=== PATIENT | male | born 1975 | race Caucasian/White ===

== ENCOUNTER 2016-08-14 18:47 | Inpatient (IN) | payer BC ==
[~2016-08-14] VITALS: Ht 185.4 cm; Wt 113.4 kg
--- NOTE | 2016-08-14 19:00 | NUR ---
PT WALKED INTO ER C/O LEFT ELBOW PAIN FROM ABSCESS, PT IS ALERT, ORIENTED X 4, NO RESP DISTRESS NOTED OR REPORTED UPON ASSESSMENT... MD AT BEDSIDE...
[2016-08-14] MEDS ORDERED: VANCOMYCIN IV 1,000 MG in IV DEXTROSE 5% 250 ML IV ONE (19:15)
[2016-08-14] MEDS ORDERED: METRONIDAZOLE 500 MG TABLET PO ONE (19:15)
[2016-08-14] MEDS ORDERED: CLARITHROMYCIN 250 MG TABLET PO ONE (19:15)
--- NOTE | 2016-08-14 19:26 | NUR ---
PER [facility], PAGED DR. NEGRON FOR MD TO ... CALL TRANSFERRED TO [facility]
[2016-08-14] MEDS ORDERED: MAGNESIUM HYDROXIDE 30 ML LIQUID UDC PO PRN (19:30)
[2016-08-14] MEDS ORDERED: ACETAMINOPHEN 325 MG TABLET PO PRN (19:30)
[2016-08-14] MEDS ORDERED: Z GUARD REMEDY PASTE 57 GM TUBE TOP PRN (19:30)
[2016-08-14 19:50] LABS: BASOPHILS % (AUTO) 0.5 % (0.0-2.0); EOSINOPHILS # (AUTO) 0.1 K/uL (0.0-0.7); EOSINOPHILS % (AUTO) 1.7 % (0.0-7.0); HEMATOCRIT 50.9 % (40-50); HEMOGLOBIN 17.1 G/DL (14.0-18.0); LYMPHOCYTES # (AUTO) 2.4 K/UL (0.8-4.8); LYMPHOCYTES % (AUTO) 27.8 % (20.5-51.5); MEAN CORPUSCULAR HEMOGLOBIN 30.7 UUG (27.0-31.0); MEAN CORPUSCULAR HGB CONC 34 g/dL (32.0-37.0); MEAN CORPUSCULAR VOLUME 91.7 FL (82.0-92.0); MONOCYTES # (AUTO) 0.6 K/UL (0.1-1.30); MONOCYTES % (AUTO) 6.4 % (0.0-11.0); NEUTROPHILS # (AUTO) 5.7 K/UL (1.8-8.9); NEUTROPHILS % (AUTO) 63.6 % (38.5-71.5); PLATELET COUNT (AUTO) 199 K/UL (150-450); RED BLOOD CELL COUNT(AUTO) 5.56 MIL/UL (4.7-6.1); RED CELL DISTRIBUTION WIDTH 12.3 % (11.5-14.5); WHITE BLOOD COUNT (AUTO) 8.8 K/UL (4.0-11.2)
[2016-08-14] MEDS ORDERED: VANCOMYCIN IV 200 ML ONE (19:55)
[2016-08-14 20:00] LABS: CALCIUM 8.6 mg/dL (8.5-10.1); CREATININE 1.4 mg/dL (0.6-1.3); POTASSIUM 4.1 mmol/L (3.5-5.1)
[2016-08-14 20:05] LABS: ALBUMIN 3.9 g/dL (3.4-5.0); BILIRUBIN,DIRECT 0.1 mg/dL (0.0-0.2); BILIRUBIN,TOTAL 0.2 mg/dL (0.2-1.0); TOTAL PROTEIN, SERUM 7.1 g/dL (6.4-8.2)
[2016-08-14] MEDS ORDERED: IV LACTATED RINGERS SOLUTION 1,000 ML IV ONE (20:11)
[2016-08-14] MEDS ORDERED: METRONIDAZOLE 500 MG TABLET ONE (20:20)
[2016-08-14] MEDS ORDERED: CLARITHROMYCIN 250 MG TABLET ONE (20:20)
[2016-08-14] MEDS ORDERED: MISCELLANEOUS MED IV PRN (20:30)
[2016-08-14] MEDS ORDERED: PANTOPRAZOLE SODIUM 40 MG VIAL ONE (20:40)
[2016-08-14] MEDS ORDERED: MISCELLANEOUS MED XX PRN (20:45)
--- NOTE | 2016-08-14 20:45 | NUR ---
RECEIVED FROM ER VIA [facility]. USHERED TO ROOM AND PLACED COMFORTABLY ON BED. ACCOMPANIED BY SIGNIFICANT OTHER. ALERT,ORIENTED X 4, AMBULATORY. ABLE TO PROVIDE HISTORY. BODY ASSESSMENT DONE. ABLE TO MAKE NEEDS KNOWN. INSTRUCTED HOW TO USE CALL LIGHT WHEN IN NEED OF ASSISTANCE. NEEDS ATTENDED. CALL LIGHT WITHIN REACH
--- NOTE | 2016-08-14 20:54 | NUR ---
Pt. admitted to [facility] , under care of Dr. MESSINA, Belongs List completed, pt alert, and oriented x 4, no resp distress noted or reported upon transfer assessment... pt transferred via gurney...
[2016-08-14 21:11] VITALS: BP 147/85
[2016-08-14] MEDS ORDERED: CLAR500T3 PO (21:40)
[2016-08-14] MEDS ORDERED: METR500T PO (21:40)
[2016-08-15] VITALS (8 sets, daily range): BP systolic 113–125; BP diastolic 70–83
[2016-08-15] MEDS: HYDROCODONE/APAP 5-325MG TABLET PO PRN ×3 (00:26→21:49)
[2016-08-15] MEDS ORDERED: HYDROCODONE/APAP 5-325MG TABLET ONE (00:35)
--- NOTE | 2016-08-15 06:18 | NUR ---
SLEPT INTERMITTENTLY DURING THE SHIFT. NO ACUTE DISTRESS NOTED. REMAINS NPO POST MIDNIGHT. NEEDS ATTENDED. ALL DUE MEDS GIVEN ORDERED. KEPT COMFORTABLE AT ALL TIMES. CALL LIGHT WITHIN REACH
[2016-08-15 06:55] LABS: BASOPHILS % (AUTO) 0.5 % (0.0-2.0); EOSINOPHILS # (AUTO) 0.2 K/uL (0.0-0.7); EOSINOPHILS % (AUTO) 2.6 % (0.0-7.0); HEMATOCRIT 47.2 % (40-50); HEMOGLOBIN 15.8 G/DL (14.0-18.0); LYMPHOCYTES # (AUTO) 2.5 K/UL (0.8-4.8); LYMPHOCYTES % (AUTO) 39.5 % (20.5-51.5); MEAN CORPUSCULAR HEMOGLOBIN 30.7 UUG (27.0-31.0); MEAN CORPUSCULAR HGB CONC 33 g/dL (32.0-37.0); MEAN CORPUSCULAR VOLUME 91.9 FL (82.0-92.0); MONOCYTES # (AUTO) 0.6 K/UL (0.1-1.30); MONOCYTES % (AUTO) 9.7 % (0.0-11.0); NEUTROPHILS # (AUTO) 3.1 K/UL (1.8-8.9); NEUTROPHILS % (AUTO) 47.7 % (38.5-71.5); PLATELET COUNT (AUTO) 166 K/UL (150-450); RED BLOOD CELL COUNT(AUTO) 5.14 MIL/UL (4.7-6.1); RED CELL DISTRIBUTION WIDTH 12.4 % (11.5-14.5)
[2016-08-15 07:03] LABS: WHITE BLOOD COUNT (AUTO) 6.4 K/UL (4.0-11.2)
[2016-08-15 07:14] LABS: CALCIUM 8.3 mg/dL (8.5-10.1); MAGNESIUM 1.9 mg/dL (1.8-2.4); PHOSPHOROUS 3.5 mg/dL (2.5-4.9)
[2016-08-15] MEDS ORDERED: SEVOFLURANE 250 ML BOTTLE IH ONE (07:16)
[2016-08-15] MEDS ORDERED: PROPOFOL 200 MG/20 ML BOTTLE IV ONE (07:16)
[2016-08-15] MEDS ORDERED: LIDOCAINE HCL 1% 20 ML VIAL MC ONE (07:17)
[2016-08-15] MEDS ORDERED: ONDANSETRON 4 MG/2 ML VIAL IV ONE (07:17)
[2016-08-15] MEDS ORDERED: DEXAMETHASONE SOD PHOSPHATE 4 MG INJ IV ONE (07:17)
[2016-08-15] MEDS ORDERED: IV LACTATED RINGERS SOLUTION 1,000 ML BAG IV ONE (07:17)
[2016-08-15] MEDS ORDERED: EPHEDRINE SULFATE 50 MG/ML AMPUL MC ONE (07:18)
[2016-08-15 07:27] LABS: CREATININE 1.4 mg/dL (0.6-1.3)
[2016-08-15] MEDS ORDERED: POLYMYXIN B SULFATE 500,000 UNITS, BACITRACIN 50,000 UNITS, NORMAL SALINE 20 ML MC ONE ×3 (08:30)
[2016-08-15] MEDS ORDERED: BUPIVACAINE 0.25% 30 ML VIAL ONE (08:38)
[2016-08-15 08:51] LABS: *BILIRUBIN,URIN NEGATIVE (NEGATIVE); *BLOOD, URINE NEGATIVE (NEGATIVE); *CLARITY,URINE CLEAR (CLEAR); *COLOR,URINE YELLOW (YELLOW); *KETONES,URINE NEGATIVE (NEGATIVE); *PROTEIN,URINE NEGATIVE (NEGATIVE); *UROBILINOGEN,URINE 0.2 E.U./dl (NORMAL); LEUKOCYTE ESTERASE ,URINE NEGATIVE (NEGATIVE); NITRITE, URINE NEGATIVE (NEGATIVE); UGLUCOSE NEGATIVE (NEGATIVE)
[2016-08-15 08:59] LABS: BACTERIA,URINE FEW /HPF (NONE SEEN); RBC,URINE 0-3 /HPF (0-3); SQUAMOUS EPITHELIAL CELL,UR FEW /HPF (NONE SEEN); WBC,URINE 0-3 /HPF (0-3)
[2016-08-15] MEDS ORDERED: CLARITHROMYCIN PO SCH (09:00)
[2016-08-15] MEDS ORDERED: METRONIDAZOLE 500 MG TABLET PO SCH (09:00)
--- NOTE | 2016-08-15 09:18 | NUR ---
PATIENT PICKED UP BY BED TO OR AWAKE ALERT AND ORIENTED.DENIES PAIN OR DISCOMFORTS AT THIS TIME.PATIENT DID NOT SIGN THE CONSCENT YET PENDING MD TO TALK AND EXPLAIN TO THE PATIENT THE PROCEDURE.
[2016-08-15] MEDS ORDERED: MIDAZOLAM HCL 2 MG/2 ML VIAL ONE (09:36)
[2016-08-15] MEDS ORDERED: FENTANYL CITRATE 100 MCG/2 ML AMPUL ONE ×2 (09:36→11:52)
[2016-08-15] MEDS: METRONIDAZOLE 500 MG/NS 100ML 500 MG in PREMIXED 1 EACH IV SCH ×2 (09:45→21:02)
[2016-08-15] MEDS ORDERED: BACITRACIN ZINC OINT 15 GM TUBE ONE (11:06)
--- NOTE | 2016-08-15 12:30 | NUR ---
PATIENT RETURNED FROM PACU BY BED TO HIS ROOM AWAKE ALERT AND ORIENTED.STATED THAT SHE WAS COMFORTABLE AT THIS TIME.ON ROOM AIR WITH NO SHORTNESS OF BREATH AT THIS TIME.LEFT ELBOW WITH BULKY DRESSING WHICH IS DRY AND INTACT.CURRENTLY ON LACTATE RINGERS FROM THE OR.MADE COMFORTABLE AT THIS TIME.
--- NOTE | 2016-08-15 13:00 | NUR ---
PATIENT IS COMPLAINING OF PAIN IN THE SURGICAL SITE AND NAUSEA DR MESSINA HERE AT THE BEDSIDE WITH NEW ORDERS AND NOTED.
[2016-08-15] MEDS ORDERED: MORPHINE SULFATE 2 MG/1 ML DISP.SYRIN IV PRN ×2 (13:15→13:45)
[2016-08-15] MEDS: ONDANSETRON 4 MG/2 ML VIAL IV PRN ×2 (13:18→17:34)
--- NOTE | 2016-08-15 14:11 | NUR ---
PATIENT IS RESTING REQUESTED TO DECREASE HIS MORPHINE DOSE TO ONE MG STATED THAT THE 2 MG WAS A LITTLE BIT TOO MUCH DR MESSINA NOTIFIED WITH ORDERS AND NOTED.
[2016-08-15] MEDS: CLARITHROMYCIN 250 MG TABLET PO SCH ×2 (14:32→21:03)
--- NOTE | 2016-08-15 15:12 | NUR ---
Clinical pharmacy note-Vancomycin dosing per pharmacy Subjective: To start Vancomycin dosing on this 41 year old male patient for left elbow abscess(septic bursitis) Objective: BUN 23 Scr 1.4 WBC 6.4 Temp 98 Ht 6'1" Wt 250 lbs Assessment/Plan: Patient had Vancomycin 1gram last night at 1930 in ER. Will continue as Vancomycin 2 gram IV every 15 hrs (first dose today at 4pm) and draw trough by 4th dose(not ordered yet) for expected trough around 15.2. Will monitor renal function closely to adjust the dose if needed. Will follow daily.
[2016-08-15] MEDS: VANCOMYCIN IV 2,000 MG in IV DEXTROSE 5% 500 ML IV SCH (16:28)
[2016-08-15] MEDS ORDERED: DEXL60CA3 PO (17:06)
[2016-08-15] MEDS ORDERED: HOME MED MISCELLANEOUS XX SCH (17:15)
[2016-08-15] MEDS: PANTOPRAZOLE SODIUM 40 MG TABLET.DR PO SCH (17:40)
[2016-08-15] MEDS ORDERED: ONDANSETRON 4 MG/2 ML VIAL IV PRN (17:53)
--- NOTE | 2016-08-15 17:54 | NUR ---
PATIENT IS COMPLAINING OF NAUSEA AND CURRENT ORDER IS FOR Q6H CALLED DR MESSINA WITH ORDER TO CHANGE TO Q4H AND NOTED.
--- NOTE | 2016-08-15 19:11 | NUR ---
RESTING AT THE MOMENT WITH HIS SIGNIFICANT OTHER AT HIS BEDSIDE WITH NO C/O AT THIS TIME.
--- NOTE | 2016-08-15 20:00 | NUR ---
PATIENT AWAKE, ALERT, ORIENTED,VITAL SIGNS STABLE, DRESSING TO LEFT ELBOW CLEAN /DRY/INTACT,NO FURTHER NAUSEA NOTED,RECEIVED NORCO FOR PAIN CONTROL WITH GOOD RESULT.
[2016-08-15] MEDS ORDERED: ZOLPIDEM 5 MG TABLET PO PRN (21:45)
[2016-08-15] MEDS ORDERED: ZOLPIDEM 5 MG TABLET ONE (22:14)
[2016-08-16] MEDS: PANTOPRAZOLE SODIUM 40 MG TABLET.DR PO SCH ×2 (06:03→16:10)
[2016-08-16] MEDS: VANCOMYCIN IV 2,000 MG in IV DEXTROSE 5% 500 ML IV SCH (06:30)
[2016-08-16] MEDS: HYDROCODONE/APAP 5-325MG TABLET PO PRN ×2 (07:10→16:10)
--- NOTE | 2016-08-16 08:00 | NUR ---
IV SITE INFILTERATED RESTARTED TO HIS LEFT FOREARM AND ANTIBIOTICS CONTINUED ORDERED WITH NO ADVERSE OR ALLERGIC REACTIONS AT THIS TIME.
[2016-08-16] MEDS: METRONIDAZOLE 500 MG/NS 100ML 500 MG in PREMIXED 1 EACH IV SCH (09:05)
[2016-08-16] MEDS: CLARITHROMYCIN 250 MG TABLET PO SCH (09:05)
[2016-08-16 12:00] VITALS: BP 121/79
--- NOTE | 2016-08-16 12:02 | NUR ---
PATIENT SEEN AND EXAMINED BY DR NEGRON WITH NO NEW ORDERS AT THIS TIME.MD CHANGED THE DRESSING ON HIS LEFT ARM,REMOVED THE DRAIN AND STATED THAT PATIENT COULD BE DISCHARGE DBY THE HOSPITALIST AND SHOULD FOLLOW UP WITH HIM IN ONE WEEK TO REMOVE STITCHES.
[2016-08-16 16:00] VITALS: BP 134/85
--- NOTE | 2016-08-16 16:00 | NUR ---
Clinical pharmacy note-Vancomycin dosing per pharmacy Subjective: To continue Vancomycin dosing on this 41 year old male patient for left elbow abscess(septic bursitis) Objective: BUN 23(08/16) Scr 1.4(08/16) WBC 6.4(08/16) Temp 97.9 Ht 6'1" Wt 250 lbs Assessment/Plan: Continue Vancomycin 2 gram IV every 15 hrs (second dose given today at 0630 am) and draw trough by 4th dose(ordered tomorrow at 1230) for expected trough around 15.2. Will monitor renal function closely to adjust the dose if needed. Will follow daily.
--- NOTE | 2016-08-16 16:20 | NUR ---
PATIENT STATED THAT DR WILKS SAW HIM AND IS GOING TO DISCHARGE HIM AND REQUESTED FOR HIS HEPLOCK TO BE REMOVED SO I DID AWAITING FOR A DISCHARGE ORDER TO BE WRITTEN.PATIENTS DRESSING WAS REMOVED BY DR LOPEZ SO I REWRAPPED IT WITH GAUZE AND MARILIA WRAP.
[2016-08-16] MEDS ORDERED: HYDR-3326 PO (16:45)
[2016-08-16] MEDS ORDERED: CELE100C PO (16:46)
--- NOTE | 2016-08-16 17:10 | NUR ---
PATIENT DISCHARGED PICKED UP BY HIS [facility] IN SATISFACTORY CONDITION WITH DISCHARGE INSTRUCTIONS AND PRESCRIPTION AND PATIENT INSTRUCTED TO CALL DR NEGRON FOR A FOLLOW UP APPOINTMENT AND TO KEEP THE DRESSING ON THE INCISION CLEAN AND DRY AT ALL TIMES AND HE EXPRESSED UNDERSTANDING.
== END 2016-08-16 17:03 | disposition home or self-care (01) | DRG 500 ==
LOC: ER 18:50 → MED 20:21
PROVIDERS: ADMIT Family Medicine; ATTEND Family Medicine
PROC: 0R9M0ZZ Drainage of Left Elbow Joint, Open Approach (ICD-10-PCS; principal; 2016-08-15 10:12)
PROC: 0MB40ZZ Excision of Left Elbow Bursa and Ligament, Open Approach (ICD-10-PCS; principal; 2016-08-15 10:12)
DX: M71.122 Other infective bursitis, left elbow (principal); N17.0 Acute kidney failure with tubular necrosis; N18.9 Chronic kidney disease, unspecified; B96.81 Helicobacter pylori [H. pylori] as the cause of diseases classified elsewhere
CPT/HCPCS: 36415; 71010; 83735; 84100; 85025; 85730; 87070; 87075; 93005; A4649; A4663; C9113; J1100; J2250; J2270; J2405; J3010; J3370; J3490; J7040; J7060; J7120

== ENCOUNTER 2016-08-16 18:57 | Emergency (ER) | payer BC, OTHER ==
[~2016-08-16] VITALS: Ht 188 cm; Wt 83.9 kg
[~2016-08-16 18:57] MED LIST: CELE100C PO; CLAR500T3 PO; DEXL60CA3 PO; HYDR-3326 PO; METR500T PO
--- NOTE | 2016-08-16 19:25 | NUR ---
Patient was place straight to room 1a to be triage. Patient refused to have vital signs and to be properly be triage. Patient stating "All I want is to get a prescription of my norco and celebrex. The MD upstair did not give me a triplicate so the pharmacy does not want to fill it." Patient was explain the process of being triage. Dr Bedoya aware
--- NOTE | 2016-08-16 19:49 | NUR ---
Patient discharged to home in stable conditon. Written and verbal after care instructions given. Patient verbalizes understanding of instructions. With Rx for Norc and Motrin. Patient revieved Rx
== END 2016-08-16 19:52 | disposition home or self-care (01) ==
LOC: ER 18:57
DX: M70.22 Olecranon bursitis, left elbow (principal); Y93.89 Activity, other specified; Z88.8 Allergy status to other drugs, medicaments and biological substances